=== PATIENT | female | born 1930 | race Hispanic/Latino ===

== ENCOUNTER 2018-02-26 09:09 | Outpatient (CLI) | payer MEDICARE, OTHER | END 2018-02-26 09:10 | disposition home or self-care (01) | LOC: RAD 09:09 ==

== ENCOUNTER 2018-03-11 10:28 | Outpatient (CLI) | payer MEDICARE, OTHER | END 2018-03-11 10:29 | disposition home or self-care (01) | LOC: RAD 10:28 ==

== ENCOUNTER 2018-05-21 11:18 | Emergency (ER) | payer MEDICARE, OTHER ==
[2018-05-21 11:59] VITALS: BMI 31.1
--- NOTE | 2018-05-21 12:02 | ED PDOC ---
Arrival/HPI - General Time Seen by Provider: 05/21/18 11:25 Historian: Patient - History of Present Illness Narrative History of Present Illness (Text): 05/21/18 11:58 87 year old female, whose past medical history includes osteoprosis, gallstones, cellulitis, [facility] complaining of left knee injury s/p trip and fall in the street. Patient report she is wheelchair bound, but reportedly attempted to walk and fell. Patient was unable to get up without assistance. She denies any head injuries and denies taking anything for the pain. Patient also reports left axillary pain, but denies any fever, chills, chest pain, shortness of breath, nausea, vomiting, diarrhea, urinary symptoms, back pain, neck pain, headache, dizziness, or any other complaints. PMD: Dr. Weathers Time/Duration: 24 hours Symptom Onset: Sudden Symptom Course: Worsening Activities at Onset: Light Context: Tripped Past Medical History - Provider Review Nursing Documentation Reviewed: Yes - Infectious Disease Hx of Infectious Diseases: None - Tetanus Immunization Tetanus Immunization: Unknown - Psychiatric Hx Depression: No Hx Emotional Abuse: No Hx Physical Abuse: No Hx Substance Use: No - Surgical History Hx Thyroidectomy: Yes - Anesthesia Hx Anesthesia: No - Suicidal Assessment Feels Threatened In Home Enviroment: No Family/Social History - Physician Review Nursing Documentation Reviewed: Yes Family/Social History: No Known Family HX Smoking Status: Unknown If Ever Smoked Hx Alcohol Use: No Hx Substance Use: No Allergies/Home Meds Allergies/Adverse Reactions: Allergies No Known Allergies Allergy (Verified 11/26/12 12:08) Home Medications: Home Meds Medication Instructions Recorded Confirmed Vit Cdaily 03/29/15 03/29/15 Review of Systems - Physician Review All systems were reviewed & negative as marked: Yes - Review of Systems Constitutional: absent: Fevers, Other (chills) Cardiovascular: Other (axillary pain). absent: Chest Pain Gastrointestinal: absent: Abdominal Pain, Diarrhea, Nausea, Vomiting Genitourinary Female: absent: Dysuria, Frequency, Hematuria Musculoskeletal: Other (left leg pain). absent: Back Pain, Neck Pain Neurological: absent: Headache, Dizziness Physical Exam Vital Signs Reviewed: Yes Temperature: Afebrile Blood Pressure: Normal Pulse: Regular Respiratory Rate: Normal Appearance: Positive for: Well-Appearing, Non-Toxic, Comfortable Pain Distress: None Mental Status: Positive for: Alert and Oriented X 3 - Systems Exam Head: Present: Atraumatic, Normocephalic Pupils: Present: PERRL Extroacular Muscles: Present: EOMI Conjunctiva: Present: Normal Mouth: Present: Moist Mucous Membranes Neck: Present: Normal Range of Motion Respiratory/Chest: Present: Clear to Auscultation, Good Air Exchange. No: Respiratory Distress, Accessory Muscle Use Cardiovascular: Present: Regular Rate and Rhythm, Normal S1, S2. No: Murmurs Abdomen: No: Tenderness, Distention, Peritoneal Signs Back: Present: Normal Inspection Upper Extremity: Present: Normal Inspection. No: Cyanosis, Edema Lower Extremity: Present: Edema (+1 edema), NORMAL PULSES, Swelling (bilateral leg swelling), Other (1.5 cm linear laceration noted to the alvarado on the left leg. Several excoriations to the bilateral knee. Pes Cavus deformity noted. ) Neurological: Present: GCS=15, Speech Normal Skin: Present: Warm, Dry, Normal Color. No: Rashes Psychiatric: Present: Alert, Oriented x 3, Normal Insight, Normal Concentration Medical Decision Making ED Course and Treatment: 05/21/18 12:00 Impression: 87 year old female presents complaining of left leg pain and axillary pain s/p fall yesterday. Patient sustained a 1.5cm laceration to the left alvarado. Plan: -- EKG -- Chest X-ray -- Boostrix Vaccine -- Toradol, Valium -- Ankle left x-ray -- Femur x-ray -- Hip x-ray -- Tiba Fibula x-ray -- Reassess and disposition Progress Notes: 05/21/18 15:53 PROCEDURE: LACERATION REPAIR Performed by Director Of Education And Training Dr. Theodore Lopez Location: left alvarado Length: 1.5cm Description: {"clean wound edges","no foreign bodies"} Distal CMS: Normal. No deficits. Neurovascularly intact. Anesthesia: Lidocaine 1% w/ EPI Preparation: The wound was cleaned with NS and Betadyne. The area was prepped and draped in the usual sterile fashion. Exploration: The wound was explored and no foreign bodies were found. Procedure: The wound was closed with 4.0 Ethilon. There was {good / appropriate / adequate / loose} approximation. In total, 8 were used. Post-Procedure: Good closure and hemostasis. The patient tolerated the procedure well and there were no complications. CSM remains intact. Post procedure dressing applied. - RAD Interpretation Narrative RAD Interpretations (Text): PROCEDURE: Radiographs of the left tibia and fibula Dictator : Nell Salinas MD Report Date : 05/21/2018 14:47:29 IMPRESSION: No acute fracture or dislocation. Chest X-ray Dictator : Nell Salinas MD Report Date : 05/21/2018 14:44:16 IMPRESSION: No active pulmonary disease. PROCEDURE: Left Knee Radiographs. Dictator : Nell Salinas MD Report Date : 05/21/2018 14:42:50 IMPRESSION: No acute displaced fracture or dislocation. Large suprapatellar joint effusion. PROCEDURE: Left Hip X-ray Radiographs. Dictator : Nell Salinas MD Report Date : 05/21/2018 14:41:48 IMPRESSION: No acute displaced fracture or dislocation. Please note occult fractures cannot be excluded on plain radiographs. If there is a persistent clinical concern, an MRI of the hip may be performed for further evaluation. PROCEDURE: Left Femur Radiographs. Dictator : Nell Salinas MD Report Date : 05/21/2018 14:45:20 IMPRESSION: No acute displaced fracture. PROCEDURE: Left Ankle Radiographs. Dictator : Nell Salinas MD Report Date : 05/21/2018 14:45:10 IMPRESSION: No acute displaced fracture or dislocation. Internal Communications Manager: Radiologist - EKG Interpretation EKG Interpretation (Text): 05/21/18 12:39 EKG shows NSR at 86 BPM with low voltage. No ST elevations. No T wave inversions or peaked T's. Interpreted by me. Interpreted by ED Physician: Yes Type: 12 lead EKG - Scribe Statement The provider has reviewed the documentation as recorded by the Aydin Lezama Provider Scribe Attestation: All medical record entries made by the Aydin were at my direction and personally dictated by me. I have reviewed the chart and agree that the record accurately reflects my personal performance of the history, physical exam, medical decision making, and the department course for this patient. I have also personally directed, reviewed, and agree with the discharge instructions and disposition Disposition/Present on Arrival - Present on Arrival Any Indicators Present on Arrival: No History of DVT/PE: No History of Uncontrolled Diabetes: No Urinary Catheter: No History Surgical Site Infection Following: None - Disposition Have Diagnosis and Disposition been Completed?: Yes Diagnosis: Fall, Laceration of lower leg, left Disposition Time: 15:23 Patient Plan: Discharge Patient Problems: Current Active Problems Problem Status Onset Fall Acute Laceration of lower leg, left Acute Condition: STABLE Discharge Instructions (ExitCare): Wound Care (DC), Laceration Repair With Stitches (DC) Print Language: KINYARWANDA Additional Instructions: All medical record entries made by the Scribe were at my direction and personally dictated by me. I have reviewed the chart and agree that the record accurately reflects my personal performance of the history, physical exam, medical decision making, and the department course for this patient. I have also personally directed, reviewed, and agree with the discharge instructions and disposition. Please return to the Emergency Room for wound reevaluation in 7 days Please follow up in clinic Prescriptions: Diazepam [Valium] 2 mg PO Q6H #6 tablet Lidocaine 5% [Lidoderm] 1 ea TD Q12 #5 patch Naproxen [Naprosyn] 500 mg PO BID #10 tablet Referrals: Kimmy Weathers DO [Primary Care Provider] - Follow up with primary Forms: [employer] (Kinyarwanda)
[2018-05-21] MEDS ORDERED: TDAP Vaccine 0.5 mL Syr IM ONE (12:08)
[2018-05-21] MEDS ORDERED: Oxycodone/Acetaminophen 5/325 mg Tab PO STA (13:19)
[2018-05-21] MEDS ORDERED: Lidocaine 5% Patch TD ONE (13:19)
--- NOTE | 2018-05-21 14:45 | RAD ---
PROCEDURE: Left Hip X-ray Radiographs. HISTORY: s/p fall COMPARISON: None. TECHNIQUE: 3 views obtained. FINDINGS: BONES: The pelvic ring is intact. There is mild diffuse bone demineralization. No acute fracture or bone destruction. Bone alignment is normal. JOINTS: Normal. SOFT TISSUES: Normal. OTHER FINDINGS: None. IMPRESSION: No acute displaced fracture or dislocation. Please note occult fractures cannot be excluded on plain radiographs. If there is a persistent clinical concern, an MRI of the hip may be performed for further evaluation.
--- NOTE | 2018-05-21 14:46 | RAD ---
Date of service: 05/21/2018 PROCEDURE: Left Knee Radiographs. HISTORY: Pain. COMPARISON: None. TECHNIQUE: 2 views obtained. FINDINGS: BONES: Bone alignment is normal. There is mild diffuse bone demineralization. There is no acute fracture or bone destruction. JOINTS: There is moderate tricompartmental degenerative osteoarthrosis with reduced joint spaces, marginal osteophytes and tibial spiking, worse in the medial compartment. There is lateral compartment chondrocalcinosis. JOINT EFFUSION: There is a large suprapatellar joint effusion. OTHER FINDINGS: None. IMPRESSION: No acute displaced fracture or dislocation. Large suprapatellar joint effusion.
--- NOTE | 2018-05-21 14:47 | CARD ---
APPROVED REPORT Date of service: 05/21/2018 EKG Measurement Heart [id number] <Conclusion> Normal sinus rhythm Low voltage QRS Borderline ECG
--- NOTE | 2018-05-21 14:47 | RAD ---
Date of service: 05/21/2018 HISTORY: s/p fall COMPARISON: 03/11/2018. FINDINGS: LUNGS: Limited examination due to midline artifact. The lungs are well inflated and clear. There is linear scarring in the left lower lobe. PLEURA: No pleural effusions or pneumothorax. CARDIOVASCULAR: The heart is normal in size. No aortic atherosclerotic calcifications present. OSSEOUS STRUCTURES: Within normal limits for the patient's age. VISUALIZED UPPER ABDOMEN: Normal. OTHER FINDINGS: None. IMPRESSION: No active pulmonary disease.
--- NOTE | 2018-05-21 14:48 | RAD ---
Date of service: 05/21/2018 PROCEDURE: Left Ankle Radiographs. HISTORY: s/p fall COMPARISON: None available. TECHNIQUE: 3 views obtained. FINDINGS: BONES: There is diffuse bone demineralization. No acute displaced fracture or bone destruction. Bone alignment is normal. JOINTS: Mild degenerative osteoarthrosis in the talonavicular joint. Ankle mortise maintained. Talar dome intact SOFT TISSUES: Mild periarticular soft tissue swelling. OTHER FINDINGS: None. IMPRESSION: No acute displaced fracture or dislocation.
--- NOTE | 2018-05-21 14:51 | RAD ---
Date of service: 05/21/2018 PROCEDURE: Radiographs of the left tibia and fibula. HISTORY: s/p fall COMPARISON: None available. TECHNIQUE: Frontal and lateral views obtained. 2 views obtained. FINDINGS: BONES: Bone alignment is normal. There is no acute displaced fracture or bone destruction. There is diffuse bone demineralization. JOINT SPACES: Unremarkable. OTHER FINDINGS: None. IMPRESSION: No acute fracture or dislocation.
--- NOTE | 2018-05-21 14:51 | RAD ---
Date of service: 05/21/2018 PROCEDURE: Left Femur Radiographs. HISTORY: s/p fall COMPARISON: None. TECHNIQUE: AP and Lateral Radiographs of the left femur. 4 views obtained. FINDINGS: FEMUR: There is mild diffuse bone demineralization. No acute fracture or bone destruction. Bone alignment is normal. SOFT TISSUES: Normal. OTHER FINDINGS: None. IMPRESSION: No acute displaced fracture.
[2018-05-21] MEDS ORDERED: Bacitracin 500 Units/gm Oint Foilpak UD ONE (15:29)
[2018-05-21 17:15] VITALS: BP 98/62; PULSE 99; RESP 19; TEMP 98.4; O2SAT 97
== END 2018-05-21 16:58 | disposition home or self-care (01) ==
LOC: ED 11:18
DX: S81.812A Laceration without foreign body, left lower leg, initial encounter (principal); W01.0XXA Fall on same level from slipping, tripping and stumbling without subsequent striking against object, initial encounter; Y92.410 Unspecified street and highway as the place of occurrence of the external cause; Z99.3 Dependence on wheelchair; Z23 Encounter for immunization
CPT/HCPCS: 12001; 71045; 73503; 73552; 73560; 73590; 73610; 90471; 90715; 93005; 96372; 99283; J1885

== ENCOUNTER 2018-06-06 10:15 | Emergency (ER) | payer MEDICARE, OTHER ==
[2018-06-06 10:16] VITALS: BMI 31.1
[2018-06-06 10:42] VITALS: BP 133/71; PULSE 91; RESP 18; TEMP 98.3; O2SAT 97
--- NOTE | 2018-06-06 10:51 | ED PDOC ---
Arrival/HPI - General Chief Complaint: Suture/Staple Removal Time Seen by Provider: 06/06/18 10:19 Historian: Patient - History of Present Illness Narrative History of Present Illness (Text): 06/06/18 10:50 87 year old F with pmh of osteoporosis, gallstones, cellulitis presents for suture removal. On 05/21/2018 patient underwent a 1.5 cm laceration repair of his left alvarado with 8 stitches. The wound is clean and dry. Patient denies any fevers, chills, headache, dizziness, chest pain, shortness of breath, dyspnea on exertion, cough, diaphoresis, abdominal pain, nausea, vomiting, diarrhea, back pain, neck pain. She is presenting for suture removal. PMD: Dr. Weathers Past Medical History - Provider Review Nursing Documentation Reviewed: Yes Primary Care Physician: Kimmy Weathers DO - Infectious Disease Hx of Infectious Diseases: None - Tetanus Immunization Tetanus Immunization: Unknown - Reproductive Menopause: Yes - Cardiac Hx Cardiac Disorders: No - Pulmonary Hx Respiratory Disorders: No - Neurological Hx Neurological Disorder: No - HEENT Hx HEENT Disorder: No - Renal Hx Renal Disorder: No - Endocrine/Metabolic Hx Endocrine Disorders: No - Hematological/Oncological Hx Blood Disorders: No - Integumentary Hx Dermatological Disorder: No - Musculoskeletal/Rheumatological Hx Musculoskeletal Disorders: Yes Hx Arthritis: Yes - Gastrointestinal Hx Gastrointestinal Disorders: No - Genitourinary/Gynecological Hx Genitourinary Disorders: No - Psychiatric Hx Depression: No Hx Emotional Abuse: No Hx Physical Abuse: No Hx Substance Use: No - Surgical History Hx Thyroidectomy: Yes - Anesthesia Hx Anesthesia: Yes Hx Anesthesia Reactions: No Hx Malignant Hyperthermia: No - Suicidal Assessment Feels Threatened In Home Enviroment: No Family/Social History - Physician Review Nursing Documentation Reviewed: Yes Family/Social History: Unknown Family HX Smoking Status: Unknown If Ever Smoked Hx Alcohol Use: No Hx Substance Use: No Allergies/Home Meds Allergies/Adverse Reactions: Allergies No Known Allergies Allergy (Verified 06/06/18 10:30) Home Medications: Home Meds Medication Instructions Recorded Confirmed Vit Cdaily 03/29/15 03/29/15 Review of Systems - Review of Systems Constitutional: absent: Fevers ENT: absent: Rhinorrhea, Epistaxis Respiratory: absent: SOB, Cough Cardiovascular: absent: Chest Pain, Palpitations Gastrointestinal: absent: Abdominal Pain, Diarrhea, Nausea, Vomiting Genitourinary Female: absent: Dysuria Musculoskeletal: absent: Arthralgias, Back Pain, Myalgias Skin: Laceration (with sutures). absent: Rash, Pruritis, Cellulitis Neurological: absent: Headache, Dizziness Hemo/Lymphatic: absent: Adenopathy, Easy Bleeding, Easy Bruising Physical Exam Vital Signs Reviewed: Yes Vital Signs Temp Pulse Resp BP Pulse Ox 06/06/18 10:37 98.3 F 91 H 18 133/71 97 Temperature: Afebrile Blood Pressure: Normal Pulse: Regular Respiratory Rate: Normal Appearance: Positive for: Well-Appearing, Non-Toxic, Comfortable Pain Distress: None Mental Status: Positive for: Alert and Oriented X 3 - Systems Exam Head: Present: Atraumatic, Normocephalic Pupils: Present: PERRL Extroacular Muscles: Present: EOMI Conjunctiva: Present: Normal Mouth: Present: Moist Mucous Membranes Lower Extremity: Present: Normal ROM, Other (1.5 cm well healing wound to L alvarado with no surrounding erythema. Sutures intact). No: Edema, Swelling, Temperature Abnormalties Neurological: Present: GCS=15, CN II-XII Intact, Speech Normal Skin: Present: Warm, Dry, Normal Color. No: Rashes Psychiatric: Present: Alert, Oriented x 3, Normal Insight, Normal Concentration Medical Decision Making ED Course and Treatment: 06/06/18 10:50 PROCEDURE: SUTURE REMOVAL Performed by the emergency provider Location: Left alvarado Length: 1.5 cm Distal CMS: Normal. No deficits. Neurovascularly intact. Preparation: The wound was cleaned with NS and Betadyne. The area was prepped and draped in the usual sterile fashion. Procedure: In total, 8 sutures were removed. Post-Procedure: Good closure and hemostasis. The patient tolerated the procedure well and there were no complications. CSM remains intact. Sutures removed. Wound intact with no erythema - Scribe Statement The provider has reviewed the documentation as recorded by the Aydin Toro All medical record entries made by the Scribe were at my direction and personally dictated by me. I have reviewed the chart and agree that the record accurately reflects my personal performance of the history, physical exam, medical decision making, and the department course for this patient. I have also personally directed, reviewed, and agree with the discharge instructions and disposition. Disposition/Present on Arrival - Present on Arrival Any Indicators Present on Arrival: No History of DVT/PE: No History of Uncontrolled Diabetes: No Urinary Catheter: No History of Decub. Ulcer: No History Surgical Site Infection Following: None - Disposition Have Diagnosis and Disposition been Completed?: Yes Diagnosis: Visit for suture removal Disposition: HOME/ ROUTINE Disposition Time: 10:51 Patient Plan: Discharge Patient Problems: Current Active Problems Problem Status Onset Visit for suture removal Acute Condition: GOOD Discharge Instructions (ExitCare): Stitches Removal Additional Instructions: Follow-up with PMD within 2 days. Return to ED if condition worsens. Referrals: Kimmy Weathers DO [Primary Care Provider] - Follow up with primary Forms: [facility] ([place])
== END 2018-06-06 11:20 | disposition home or self-care (01) ==
LOC: ED 10:15
DX: Z48.02 Encounter for removal of sutures (principal)